=== PATIENT | female | born 1995 | race Caucasian/White ===

== ENCOUNTER → 2016-11-21 | Outpatient (CLI) | payer OTHER ==
[~2016-11-21] MED LIST: CLARITIN10 M2 PO; IBUPROFEN800 MG PO; IRON325 M1 PO; KEFLEX500 MG PO; LOVENOX SY40 MG/0.4 SQ; PERCOCET 5-3251 EACH PO; QVAR8.7 G1 INH; SINGULAIR10 MG PO; VITAMIN C 500500 MG PO; VITAMIN D250000 UNIT PO; ZOFRAN 4 MG TAB4 MG PO
[2016-11-21 14:20] LABS: HEMOGLOBIN 13.2 gm/dl (12.3-15.3); RED BLOOD COUNT 4.58 M/UL (4.00-5.10); WHITE BLOOD COUNT 7.7 K/UL (4.5-11.0)
[2016-11-21 14:49] LABS: BUN/CREATININE RATIO 10 (0-10)
== END ==
LOC: OPSV2 11:00
PROVIDERS: Podiatrist Foot & Ankle Surgery
DX: Z01.812 Encounter for preprocedural laboratory examination (principal); M85.571 Aneurysmal bone cyst, right ankle and foot
CPT/HCPCS: 36415; 80048; 85025

== ENCOUNTER 2016-11-29 05:43 | Day surgery (SDC) | payer OTHER ==
[~2016-11-29] VITALS: Ht 152.4 cm; Wt 41.7 kg
[2016-11-29] MEDS ORDERED: SINGULAIR10 MG PO (06:35)
[2016-11-29] MEDS ORDERED: CLARITIN10 M2 PO (06:35)
[2016-11-29] MEDS ORDERED: IRON325 M1 PO (06:36)
[2016-11-29] MEDS ORDERED: QVAR8.7 G1 INH (06:36)
[2016-11-30] MEDS ORDERED: LOVENOX SY40 MG/0.4 SQ (10:00)
[2016-11-30] MEDS ORDERED: IBUPROFEN800 MG PO (10:08)
[2016-11-30] MEDS ORDERED: KEFLEX500 MG PO (10:09)
[2016-11-30] MEDS ORDERED: PERCOCET 5-3251 EACH PO (10:09)
[2016-11-30] MEDS ORDERED: ZOFRAN 4 MG TAB4 MG PO (10:10)
[2016-11-30] MEDS ORDERED: VITAMIN D250000 UNIT PO (10:11)
[2016-11-30] MEDS ORDERED: VITAMIN C 500500 MG PO (10:11)
== END 2016-11-30 09:30 | disposition home or self-care (01) ==
LOC: OR 05:43 → M/S 17:00 → OR 11-30 09:30
PROVIDERS: Podiatrist Foot & Ankle Surgery
PROC: 0YBM0ZZ Excision of Right Foot, Open Approach (ICD-10-PCS; principal; 2016-11-29 07:45)
DX: M85.571 Aneurysmal bone cyst, right ankle and foot (principal); M17.0 Bilateral primary osteoarthritis of knee; K21.9 Gastro-esophageal reflux disease without esophagitis; Z79.1 Long term (current) use of non-steroidal anti-inflammatories (NSAID); Z79.891 Long term (current) use of opiate analgesic; Z79.899 Other long term (current) drug therapy; Z87.19 Personal history of other diseases of the digestive system; Z88.8 Allergy status to other drugs, medicaments and biological substances
CPT/HCPCS: 73650; 76000; 87070; 87205; 97530; C1713; C1762; J0690; J1200; J1650; J2250; J2270; J2405; J2795; J3010; J3370; J7120

== ENCOUNTER → 2020-06-19 | Outpatient (CLI) | payer OTHER ==
[~2020-06-19] MED LIST changes: +BENTYL 10MG CAP10 MG PO; +BUSPIRONE HCL5 GM PO; +BUSPIRONE HCL5 MG PO; +CARDIZEM CD120 MG PO; +FLECAINIDE ACET50 MG PO; +FLUTICASONE SPRAY; +IBUPROFEN600 MG PO; +KEFLEX CAP 500500 MG PO; +NORCO 5-325 TA1 EACH PO; +ONDANSETRON HCL4 MG PO; +PRILOSEC OTC20 MG PO; +QVAR REDIHALER INH; +VENTOLIN HFA 66.7 GM INH; +VITAMIN D21250 MCG PO; +VITAMIN D3125 MC1 PO
== END ==
LOC: KOH-I 13:37
DX: S92.001D Unspecified fracture of right calcaneus, subsequent encounter for fracture with routine healing (principal); Z98.890 Other specified postprocedural states; X58.XXXD Exposure to other specified factors, subsequent encounter
CPT/HCPCS: 73650

== ENCOUNTER → 2020-08-28 | Outpatient (CLI) | payer OTHER | LOC: KOH-I 15:22 | DX: Z47.89 Encounter for other orthopedic aftercare (principal); Z98.890 Other specified postprocedural states | CPT/HCPCS: 73650 ==

== ENCOUNTER → 2020-09-11 | Outpatient (CLI) | payer OTHER | LOC: KOH-I 15:30 | DX: G89.18 Other acute postprocedural pain (principal); R93.6 Abnormal findings on diagnostic imaging of limbs | CPT/HCPCS: 73700 ==

== ENCOUNTER → 2020-12-19 | Outpatient (CLI) | payer OTHER | LOC: KOH-I 12-06 10:30 → MRI 12-07 15:00 | DX: M79.672 Pain in left foot (principal); G89.29 Other chronic pain | CPT/HCPCS: 73720; A9577 ==

== ENCOUNTER → 2021-03-28 | Outpatient (CLI) | payer OTHER | LOC: HEART 5 13:09 | DX: R00.0 Tachycardia, unspecified (principal); R00.2 Palpitations ==

== ENCOUNTER → 2021-08-24 | Outpatient (CLI) | payer OTHER ==
[~2021-08-24] MED LIST changes: +ALENDRONATE SOD10 MG PO; +COLESTID1 GM PO; +CREON DR 36,001 EACH PO; +CYPROHEPTADINE H4 MG PO; +FLOVENT 110.088 GM/I INH; +VOLTREN XR 100100 MG PO
== END ==
LOC: ECHO 13:15
DX: I47.1 Supraventricular tachycardia (principal); R55 Syncope and collapse; R00.2 Palpitations; I07.1 Rheumatic tricuspid insufficiency
CPT/HCPCS: ECHO; 93306

== ENCOUNTER → 2021-08-28 | Outpatient (CLI) | payer OTHER | END | disposition home or self-care (01) | LOC: CATH 09:16 | DX: I47.1 Supraventricular tachycardia (principal); J45.909 Unspecified asthma, uncomplicated; Z88.8 Allergy status to other drugs, medicaments and biological substances; Z79.899 Other long term (current) drug therapy; Z82.49 Family history of ischemic heart disease and other diseases of the circulatory system | CPT/HCPCS: 93005; 93613; 93620; 93621; 93623; 99152; 99153; C1730; C1733; C1766; J1200; J1644; J2250; J3010; J7040; J7050 ==